=== PATIENT | female | born 1950 | race Hispanic/Latino ===

== ENCOUNTER 2021-01-19 13:09 | Outpatient (CLI) | payer MEDICARE | END 2021-01-19 13:10 | disposition home or self-care (01) | LOC: BICMAMMO 13:09 | PROVIDERS: ATTEND Hospitalist | DX: Z12.31 Encounter for screening mammogram for malignant neoplasm of breast (principal); Z13.820 Encounter for screening for osteoporosis; Z78.0 Asymptomatic menopausal state | CPT/HCPCS: 77063; 77067; 77080 ==

== ENCOUNTER 2021-06-29 10:54 | Inpatient (IN) | payer MEDICARE ==
[2021-06-29 11:37] LABS: #Basophils 0.1 thou/uL (0.0-0.2); #Eosinphils 0.1 thou/uL (0.0-0.7); #Lymphocytes 2.6 thou/uL (1.20-3.40); #Monocytes 0.4 thou/uL (0.11-0.59); #Neutrophils 4.2 thou/uL (1.40-6.50); %Basophils 0.7 % (0.0-1.0); %Eosinophils 1.3 % (0.0-10.0); %Lymphocytes 35.7 % (21.0-51.0); %Monocytes 4.9 % (0.0-10.0); %Neutrophils 57.3 % (42.0-75.0); Hemoglobin 13.7 g/dL (12.0-16.0); Mean Corpuscular Hemoglobin 32.2 pg (27.0-31.0); Mean Platelet Volume 7.6 fL (7.4-10.4); Platelet Count 303 thou/uL (130-400); RBC Distribution Width 10.7 % (11.5-14.5); Red Blood Cell (RBC) Count 4.27 mill/uL (4.20-5.40); White Blood Cell (WBC) Count 7.3 thou/uL (4.8-10.8)
[2021-06-29] MEDS ORDERED: Lorazepam 2 MG/ML VIAL ONE (17:46)
[2021-06-29 20:33] LABS: Anion Gap 12 mmol/L (10-20); BUN (Urea Nitrogen) 13 mg/dL (9.8-20.1); Calc. Creatinine Clearance 0 mL/min (70-130); Carbon Dioxide 26 mmol/L (23-31); Chloride 103 mmol/L (98-107); Potassium 3.7 mmol/L (3.5-5.1); Sodium 137 mmol/L (136-145)
[2021-06-29 20:34] LABS: ALT (SGPT) 26 U/L (8-55); AST (SGOT) 17 U/L (5-34); Albumin 4.4 g/dL (3.4-4.8); Alkaline Phosphatase 92 U/L (40-110); Bilirubin, Total 0.5 mg/dL (0.2-1.2); Calcium 9.7 mg/dL (7.8-10.44); Globulin 2.6 g/dL (2.4-3.5); Glucose 167 mg/dL (83-110)
[2021-06-29] MEDS ORDERED: Ondansetron ODT 4 MG TAB PO PRN (22:32)
[2021-06-29] MEDS ORDERED: Diclofenac 1% 100 GM GEL TP PRN (22:59)
[2021-06-29] MEDS ORDERED: Amitriptyline HCl 100 MG TAB PO SCH (23:15)
[2021-06-29] MEDS ORDERED: Atorvastatin Calcium 20 MG TAB PO SCH (23:30)
[2021-06-30] MEDS ORDERED: Amitriptyline HCl 100 MG TAB PO SCH (09:00)
[2021-06-30 09:29] VITALS: BMI 28.5
[2021-06-30] MEDS: Lisinopril 10 MG TAB PO SCH (09:48)
[2021-06-30] MEDS: Triamterene/Hydrochlorothiazide 37.5 mg/25 mg Tablet PO SCH (09:49)
[2021-06-30] MEDS: Famotidine 20 MG TAB PO SCH (09:55)
[2021-06-30] MEDS: Enoxaparin Sodium 40 MG/0.4 ML SYRINGE SC SCH (09:55)
[2021-06-30 10:57] LABS: SARS-CoV-2 NAA Rapid Test Not Detected (NotDetected)
[2021-06-30] MEDS ORDERED: Lidocaine 1% (PF) 30 ML VIAL ONE (11:25)
[2021-06-30 18:19] LABS: #Basophils 0.1 thou/uL (0.0-0.2); #Eosinphils 0.1 thou/uL (0.0-0.7); #Lymphocytes 2.9 thou/uL (1.20-3.40); #Monocytes 0.7 thou/uL (0.11-0.59); #Neutrophils 5.6 thou/uL (1.40-6.50); %Basophils 0.8 % (0.0-1.0); %Eosinophils 0.6 % (0.0-10.0); %Lymphocytes 31.2 % (21.0-51.0); %Monocytes 7.7 % (0.0-10.0); %Neutrophils 59.7 % (42.0-75.0); Hemoglobin 14.8 g/dL (12.0-16.0); Mean Corpuscular HGB CONC 35.4 g/dL (32.0-36.0); Mean Corpuscular Hemoglobin 32.5 pg (27.0-31.0); Mean Corpuscular Volume 91.9 fL (78.0-98.0); Mean Platelet Volume 7.6 fL (7.4-10.4); Platelet Count 317 thou/uL (130-400); Red Blood Cell (RBC) Count 4.56 mill/uL (4.20-5.40); White Blood Cell (WBC) Count 9.4 thou/uL (4.8-10.8)
[2021-06-30 18:50] LABS: ALT (SGPT) 25 U/L (8-55); AST (SGOT) 15 U/L (5-34); Albumin 4.7 g/dL (3.4-4.8); Alkaline Phosphatase 90 U/L (40-110); Anion Gap 16 mmol/L (10-20); BUN (Urea Nitrogen) 13 mg/dL (9.8-20.1); Bilirubin, Total 0.4 mg/dL (0.2-1.2); CRP (Inflammatory) 0.51 mg/dL (= or < 0.5); Calc. Creatinine Clearance 80 mL/min (70-130); Calcium 10.2 mg/dL (7.8-10.44); Carbon Dioxide 26 mmol/L (23-31); Chloride 103 mmol/L (98-107); Globulin 2.7 g/dL (2.4-3.5); Glucose 123 mg/dL (83-110); Potassium 3.9 mmol/L (3.5-5.1); Protein, Total 7.4 g/dL (5.8-8.1); Sodium 141 mmol/L (136-145)
[2021-06-30 19:03] LABS: Hep C Index 0.07 S/CO (0-0.79)
[2021-06-30 19:04] LABS: Hep C IgG Ab Non-Reactive (NonReactive)
[2021-06-30 19:07] LABS: Syphilis Antibody Nonreactive (Nonreactive); Syphilis Antibody Index 0.03 S/CO (<1.00 Non-Reactive)
[2021-06-30] MEDS: Amitriptyline HCl 100 MG TAB PO SCH (20:38)
[2021-06-30] MEDS: Atorvastatin Calcium 20 MG TAB PO SCH (20:39)
[2021-06-30] MEDS: methylPREDNISolone Sod Succ 1 GM in Sodium Chloride 0.9% 100 ML IVPB SCH (20:39)
[2021-07-01 06:51] LABS: HIV (1/2) Antibody/Antigen Non-Reactive (NonReactive); HIV 1/2 INDEX 0.07 S/CO (<1.00)
[2021-07-01] MEDS: Famotidine 20 MG TAB PO SCH (08:49)
[2021-07-01] MEDS: Enoxaparin Sodium 40 MG/0.4 ML SYRINGE SC SCH (08:49)
[2021-07-01] MEDS: Lisinopril 10 MG TAB PO SCH (08:49)
[2021-07-01] MEDS: Triamterene/Hydrochlorothiazide 37.5 mg/25 mg Tablet PO SCH (09:51)
[2021-07-01] MEDS ORDERED: Lorazepam 2 MG/ML VIAL SLOW IVP SCH (11:01)
[2021-07-01] MEDS ORDERED: Magnevist 469MG/ML 20 ML VIAL ONE ×2 (15:44)
[2021-07-01] MEDS: methylPREDNISolone Sod Succ 1 GM in Sodium Chloride 0.9% 100 ML IVPB SCH (20:55)
[2021-07-01] MEDS: Atorvastatin Calcium 20 MG TAB PO SCH (20:56)
[2021-07-01] MEDS: Amitriptyline HCl 100 MG TAB PO SCH (20:56)
[2021-07-02] MEDS: Polyethylene Glycol 3350 17 GM Packet PO PRN (09:07)
[2021-07-02] MEDS: Lisinopril 10 MG TAB PO SCH (09:08)
[2021-07-02] MEDS: Enoxaparin Sodium 40 MG/0.4 ML SYRINGE SC SCH (09:08)
[2021-07-02] MEDS: Famotidine 20 MG TAB PO SCH (09:08)
[2021-07-02] MEDS: Triamterene/Hydrochlorothiazide 37.5 mg/25 mg Tablet PO SCH (09:20)
[2021-07-02] MEDS ORDERED: methylPREDNISolone Sod Succ 1 GM in Sodium Chloride 0.9% 250 ML 250 ML IVPB SCH (20:00)
[2021-07-02] MEDS: Amitriptyline HCl 100 MG TAB PO SCH (21:30)
[2021-07-02] MEDS: Atorvastatin Calcium 20 MG TAB PO SCH (21:31)
[2021-07-03] MEDS ORDERED: Lisinopril 10 MG TAB PO SCH (08:24)
[2021-07-03] MEDS: Famotidine 20 MG TAB PO SCH (08:58)
[2021-07-03] MEDS: Enoxaparin Sodium 40 MG/0.4 ML SYRINGE SC SCH (08:58)
[2021-07-03] MEDS: Triamterene/Hydrochlorothiazide 37.5 mg/25 mg Tablet PO SCH (08:58)
[2021-07-03] MEDS: Lisinopril 20 MG TAB PO SCH (08:58)
[2021-07-03 09:33] LABS: #Lymphocytes 1.2 thou/uL (1.20-3.40); #Monocytes 0.1 thou/uL (0.11-0.59); #Neutrophils 11.9 thou/uL (1.40-6.50); %Eosinophils 0.3 % (0.0-10.0); %Lymphocytes 8.8 % (21.0-51.0); %Monocytes 0.6 % (0.0-10.0); %Neutrophils 90.3 % (42.0-75.0); Hemoglobin 14.2 g/dL (12.0-16.0); Mean Corpuscular HGB CONC 34.3 g/dL (32.0-36.0); Mean Corpuscular Hemoglobin 31.8 pg (27.0-31.0); Mean Corpuscular Volume 92.7 fL (78.0-98.0); Platelet Count 345 thou/uL (130-400); RBC Distribution Width 11.2 % (11.5-14.5); Red Blood Cell (RBC) Count 4.45 mill/uL (4.20-5.40); White Blood Cell (WBC) Count 13.2 thou/uL (4.8-10.8)
[2021-07-03 09:51] LABS: ALT (SGPT) 34 U/L (8-55); AST (SGOT) 16 U/L (5-34); Albumin 4.4 g/dL (3.4-4.8); Alkaline Phosphatase 75 U/L (40-110); Anion Gap 17 mmol/L (10-20); BUN (Urea Nitrogen) 34 mg/dL (9.8-20.1); Bilirubin, Total 0.5 mg/dL (0.2-1.2); Calc. Creatinine Clearance 72 mL/min (70-130); Calcium 10.1 mg/dL (7.8-10.44); Carbon Dioxide 21 mmol/L (23-31); Chloride 107 mmol/L (98-107); Globulin 2.7 g/dL (2.4-3.5); Glucose 161 mg/dL (83-110); Potassium 4.2 mmol/L (3.5-5.1); Protein, Total 7.1 g/dL (5.8-8.1); Sodium 141 mmol/L (136-145)
[2021-07-03 13:12] LABS: Lyme IgG/IgM AB <0.91 ISR (0.00-0.90)
[2021-07-03] MEDS: Acetaminophen 325 MG TAB PO PRN (19:34)
[2021-07-03] MEDS: Amitriptyline HCl 100 MG TAB PO SCH (20:29)
[2021-07-03] MEDS: Atorvastatin Calcium 20 MG TAB PO SCH (20:29)
[2021-07-04] MEDS: Polyethylene Glycol 3350 17 GM Packet PO PRN (08:45)
[2021-07-04] MEDS: Triamterene/Hydrochlorothiazide 37.5 mg/25 mg Tablet PO SCH (08:47)
[2021-07-04] MEDS: Famotidine 20 MG TAB PO SCH (08:47)
[2021-07-04] MEDS: Lisinopril 20 MG TAB PO SCH (08:47)
[2021-07-04] MEDS: Enoxaparin Sodium 40 MG/0.4 ML SYRINGE SC SCH (08:48)
[2021-07-04] MEDS: Acetaminophen 325 MG TAB PO PRN (14:02)
[2021-07-04] MEDS: Amitriptyline HCl 100 MG TAB PO SCH (21:19)
[2021-07-04] MEDS: Atorvastatin Calcium 20 MG TAB PO SCH (21:19)
[2021-07-05] MEDS: Famotidine 20 MG TAB PO SCH (09:13)
[2021-07-05] MEDS: Lisinopril 20 MG TAB PO SCH (09:14)
[2021-07-05] MEDS: Enoxaparin Sodium 40 MG/0.4 ML SYRINGE SC SCH (09:14)
[2021-07-05] MEDS: Triamterene/Hydrochlorothiazide 37.5 mg/25 mg Tablet PO SCH (10:10)
[2021-07-05 11:54] LABS: #Basophils 0.1 thou/uL (0.0-0.2); #Eosinphils 0.3 thou/uL (0.0-0.7); #Lymphocytes 3.1 thou/uL (1.20-3.40); #Monocytes 1.1 thou/uL (0.11-0.59); %Eosinophils 2.3 % (0.0-10.0); %Lymphocytes 22.8 % (21.0-51.0); %Neutrophils 65.9 % (42.0-75.0); Hemoglobin 15.8 g/dL (12.0-16.0); Mean Corpuscular HGB CONC 32.9 g/dL (32.0-36.0); Mean Corpuscular Hemoglobin 30.8 pg (27.0-31.0); Mean Corpuscular Volume 93.8 fL (78.0-98.0); Mean Platelet Volume 7.7 fL (7.4-10.4); Platelet Count 340 thou/uL (130-400); RBC Distribution Width 11.3 % (11.5-14.5); Red Blood Cell (RBC) Count 5.12 mill/uL (4.20-5.40); White Blood Cell (WBC) Count 13.7 thou/uL (4.8-10.8)
[2021-07-05 12:22] LABS: ALT (SGPT) 98 U/L (8-55); AST (SGOT) 23 U/L (5-34); Albumin 4.4 g/dL (3.4-4.8); Alkaline Phosphatase 96 U/L (40-110); Anion Gap 13 mmol/L (10-20); BUN (Urea Nitrogen) 30 mg/dL (9.8-20.1); Bilirubin, Total 0.7 mg/dL (0.2-1.2); Calc. Creatinine Clearance 80 mL/min (70-130); Calcium 9.9 mg/dL (7.8-10.44); Carbon Dioxide 24 mmol/L (23-31); Chloride 107 mmol/L (98-107); Globulin 2.9 g/dL (2.4-3.5); Glucose 125 mg/dL (83-110); Potassium 4.2 mmol/L (3.5-5.1); Protein, Total 7.3 g/dL (5.8-8.1); Sodium 140 mmol/L (136-145)
[2021-07-05 15:48] VITALS: BP 120/73; TEMP 97.7
== END 2021-07-05 18:15 | DRG 99 ==
LOC: ERS 10:54 → 3SE 22:32 → OBSVTOIN 07-01 11:27
PROVIDERS: ADMIT Family Medicine; ATTEND Family Medicine
DX: G37.3 Acute transverse myelitis in demyelinating disease of central nervous system (principal); Z66 Do not resuscitate; Z20.822 Contact with and (suspected) exposure to COVID-19; I10 Essential (primary) hypertension; E78.5 Hyperlipidemia, unspecified; M19.90 Unspecified osteoarthritis, unspecified site; J45.909 Unspecified asthma, uncomplicated; R29.6 Repeated falls; F32.9 Major depressive disorder, single episode, unspecified; M85.80 Other specified disorders of bone density and structure, unspecified site; Z79.899 Other long term (current) drug therapy; Z98.890 Other specified postprocedural states
CPT/HCPCS: 36415; 70450; 72157; 72158; 80053; 82607; 84207; 84425; 85025; 85652; 86140; 86618; 86780; 86803; 87389; 93005; 96365; 96372; A9579; G0378; J1650; J2060; J2930; J3490; J7050; U0002

== ENCOUNTER 2022-01-23 11:20 | Outpatient (CLI) | payer MEDICARE | END 2022-01-23 11:21 | disposition home or self-care (01) | LOC: RAD 11:20 | PROVIDERS: ATTEND Physician Assistant | DX: M47.22 Other spondylosis with radiculopathy, cervical region (principal); Z98.1 Arthrodesis status | CPT/HCPCS: 72040 ==

== ENCOUNTER 2022-02-26 18:27 | Inpatient (IN) | payer MEDICARE, OTHER ==
[~2022-02-26 18:27] MED LIST: Iopamidol-370 76% 500 ML 1 ML ONE
[2022-02-26 18:58] LABS: #Basophils 0.1 thou/uL (0.0-0.2); #Eosinphils 0.1 thou/uL (0.0-0.7); #Lymphocytes 2.7 thou/uL (1.20-3.40); #Monocytes 0.9 thou/uL (0.11-0.59); #Neutrophils 8.5 thou/uL (1.40-6.50); %Basophils 0.4 % (0.0-1.0); %Eosinophils 1.1 % (0.0-10.0); %Lymphocytes 21.9 % (21.0-51.0); %Monocytes 7.3 % (0.0-10.0); %Neutrophils 69.3 % (42.0-75.0); Mean Corpuscular HGB CONC 31.3 g/dL (32.0-36.0); Mean Corpuscular Volume 92.5 fL (78.0-98.0); Mean Platelet Volume 5.8 fL (7.4-10.4); Platelet Count 840 thou/uL (130-400); RBC Distribution Width 13.8 % (11.5-14.5); Red Blood Cell (RBC) Count 3.09 mill/uL (4.20-5.40); White Blood Cell (WBC) Count 12.3 thou/uL (4.8-10.8)
[2022-02-26 19:18] LABS: ALT (SGPT) 145 U/L (8-55); AST (SGOT) 73 U/L (5-34); Albumin 2.9 g/dL (3.4-4.8); Alkaline Phosphatase 183 U/L (40-110); Anion Gap 15 mmol/L (10-20); BUN (Urea Nitrogen) 10 mg/dL (9.8-20.1); Bilirubin, Total 0.5 mg/dL (0.2-1.2); Calc. Creatinine Clearance 0 mL/min (70-130); Calcium 8.7 mg/dL (7.8-10.44); Carbon Dioxide 24 mmol/L (23-31); Chloride 105 mmol/L (98-107); Globulin 3.7 g/dL (2.4-3.5); Glucose 128 mg/dL (83-110); Magnesium 1.6 mg/dL (1.6-2.6); Potassium 3.7 mmol/L (3.5-5.1); Protein, Total 6.6 g/dL (5.8-8.1); Sodium 140 mmol/L (136-145)
[2022-02-26 20:11] LABS: Bilirubin Negative (Negative); Blood, Urine 1+ (Negative); Calcium Oxalate Crystals Rare HPF (None Seen); Clarity Clear (Clear); Glucose, Urine (Dipstick) Normal (Negative); Ketone, Urine Negative (Negative); Leukocyte 500 Leu/uL (Negative); Nitrite Negative (Negative); Protein, Urine (Dipstick) Negative (Neg-Trace); RBC/HPF 0-3 HPF (0-3); Squamous Epithelial None Seen HPF (0-3); Urobilinogen Normal mg/dL (Less than 2)
[2022-02-26 20:12] LABS: Bacteria/HPF 1+ HPF (None Seen); Specific Gravity, Urine 1.046 (1.002-1.036)
[2022-02-26] MEDS ORDERED: Piperacillin/Tazobactam 4.5 GM VIAL ONE (20:27)
[2022-02-26] MEDS ORDERED: Vancomycin 1 GM/200 ML BAG ONE (21:02)
[2022-02-26] MEDS ORDERED: Ondansetron ODT 4 MG TAB PO PRN (21:33)
[2022-02-26 22:14] VITALS: BMI 27.8
[2022-02-26] MEDS ORDERED: Famotidine 20 MG TAB PO PRN (22:14)
[2022-02-26] MEDS ORDERED: Albuterol Sulfate 2.5 mg/3 ml Neb NEB PRN (22:19)
[2022-02-26] MEDS ORDERED: Vancomycin HCl 500 MG in Sodium Chloride 0.9% 100 ML IVPB SCH (23:00)
[2022-02-27] MEDS ORDERED: Ketorolac Tromethamine 30 MG/ML VIAL IVP SCH
[2022-02-27 00:58] LABS: SARS-CoV-2 PCR by NAA Not Detected (NotDetected)
[2022-02-27] MEDS: Piperacillin/Tazobactam 3.375 GM in Sodium Chloride 0.9% 100 ML IVPB SCH ×4 (01:16→23:55)
[2022-02-27 07:18] LABS: #Basophils 0.1 thou/uL (0.0-0.2); #Eosinphils 0.2 thou/uL (0.0-0.7); #Lymphocytes 2.1 thou/uL (1.20-3.40); #Monocytes 0.6 thou/uL (0.11-0.59); #Neutrophils 5.1 thou/uL (1.40-6.50); %Basophils 0.9 % (0.0-1.0); %Eosinophils 2.7 % (0.0-10.0); %Lymphocytes 25.8 % (21.0-51.0); %Monocytes 7.4 % (0.0-10.0); %Neutrophils 63.2 % (42.0-75.0); Hemoglobin 7.6 g/dL (12.0-16.0); Mean Corpuscular HGB CONC 31.3 g/dL (32.0-36.0); Mean Corpuscular Hemoglobin 29.5 pg (27.0-31.0); Mean Corpuscular Volume 94.2 fL (78.0-98.0); Mean Platelet Volume 5.8 fL (7.4-10.4); Platelet Count 692 thou/uL (130-400); RBC Distribution Width 13.5 % (11.5-14.5); Red Blood Cell (RBC) Count 2.57 mill/uL (4.20-5.40)
[2022-02-27] MEDS: Mometasone 200 MCG/Formoterol 5 MCG 120 PUFF INHALER INH SCH ×2 (07:21→19:02)
[2022-02-27 07:27] LABS: ALT (SGPT) 103 U/L (8-55); AST (SGOT) 41 U/L (5-34); Albumin 2.4 g/dL (3.4-4.8); Alkaline Phosphatase 139 U/L (40-110); Anion Gap 11 mmol/L (10-20); BUN (Urea Nitrogen) 9 mg/dL (9.8-20.1); Bilirubin, Total 0.6 mg/dL (0.2-1.2); Calc. Creatinine Clearance 102 mL/min (70-130); Calcium 8.2 mg/dL (7.8-10.44); Carbon Dioxide 24 mmol/L (23-31); Chloride 105 mmol/L (98-107); Globulin 3.1 g/dL (2.4-3.5); Glucose 101 mg/dL (83-110); Potassium 3.2 mmol/L (3.5-5.1); Protein, Total 5.5 g/dL (5.8-8.1); Sodium 137 mmol/L (136-145)
[2022-02-27 07:32] LABS: MDiff Complete? YES; Platelet Morphology Comment Appears Increased; Polychromasia SLIGHT = 2-3 cells (100X) (0-2/hpf)
[2022-02-27] MEDS: Gabapentin 300 MG CAP PO SCH ×3 (08:50→21:46)
[2022-02-27] MEDS: Apixaban 5 MG TAB PO SCH (08:50)
[2022-02-27] MEDS: Baclofen 10 MG TAB PO SCH ×3 (08:50→21:45)
[2022-02-27] MEDS: Acetaminophen 325 MG TAB PO PRN (08:57)
[2022-02-27] MEDS ORDERED: Potassium Chloride 20 MEQ TAB PO SCH (09:00)
[2022-02-27] MEDS: traMADol HCl 50 MG TAB PO PRN (12:04)
[2022-02-27] MEDS: Atorvastatin Calcium 20 MG TAB PO SCH (21:45)
[2022-02-27] MEDS: Vancomycin 1.5 GRAM/300 ML BAG 1.5 GM in Premix Bag 1 BAG IVPB SCH (21:46)
[2022-02-27] MEDS ORDERED: Amitriptyline HCl 25 MG TAB PO SCH (22:30)
[2022-02-28 06:10] LABS: #Eosinphils 0.2 thou/uL (0.0-0.7); #Monocytes 0.7 thou/uL (0.11-0.59); #Neutrophils 6.2 thou/uL (1.40-6.50); %Basophils 0.4 % (0.0-1.0); %Eosinophils 2.2 % (0.0-10.0); %Lymphocytes 22.3 % (21.0-51.0); %Monocytes 7.2 % (0.0-10.0); Mean Corpuscular HGB CONC 30.7 g/dL (32.0-36.0); Mean Corpuscular Hemoglobin 29.1 pg (27.0-31.0); Mean Corpuscular Volume 94.7 fL (78.0-98.0); Mean Platelet Volume 5.9 fL (7.4-10.4); Platelet Count 754 thou/uL (130-400); RBC Distribution Width 13.7 % (11.5-14.5); Red Blood Cell (RBC) Count 2.74 mill/uL (4.20-5.40); White Blood Cell (WBC) Count 9.1 thou/uL (4.8-10.8)
[2022-02-28 06:24] LABS: ALT (SGPT) 97 U/L (8-55); AST (SGOT) 44 U/L (5-34); Albumin 2.6 g/dL (3.4-4.8); Alkaline Phosphatase 143 U/L (40-110); Anion Gap 14 mmol/L (10-20); BUN (Urea Nitrogen) 5 mg/dL (9.8-20.1); Bilirubin, Total 0.3 mg/dL (0.2-1.2); Calc. Creatinine Clearance 104 mL/min (70-130); Calcium 8.4 mg/dL (7.8-10.44); Carbon Dioxide 22 mmol/L (23-31); Chloride 109 mmol/L (98-107); Globulin 3.2 g/dL (2.4-3.5); Glucose 106 mg/dL (83-110); Potassium 3.7 mmol/L (3.5-5.1); Protein, Total 5.8 g/dL (5.8-8.1); Sodium 141 mmol/L (136-145)
[2022-02-28] MEDS: Mometasone 200 MCG/Formoterol 5 MCG 120 PUFF INHALER INH SCH ×2 (07:18→19:39)
[2022-02-28] MEDS: Gabapentin 300 MG CAP PO SCH ×3 (08:30→21:21)
[2022-02-28] MEDS: Baclofen 10 MG TAB PO SCH ×3 (08:30→21:21)
[2022-02-28] MEDS: Piperacillin/Tazobactam 3.375 GM in Sodium Chloride 0.9% 100 ML IVPB SCH ×2 (08:30→15:27)
[2022-02-28 20:40] LABS: Vancomycin, Trough 3.6 ug/mL
[2022-02-28] MEDS: Vancomycin 1.5 GRAM/300 ML BAG 1.5 GM in Premix Bag 1 BAG IVPB SCH (21:20)
[2022-02-28] MEDS: Atorvastatin Calcium 20 MG TAB PO SCH (21:21)
[2022-02-28] MEDS: Amitriptyline HCl 100 MG TAB PO SCH (21:22)
[2022-03-01] MEDS: Piperacillin/Tazobactam 3.375 GM in Sodium Chloride 0.9% 100 ML IVPB SCH ×3 (00:12→15:45)
[2022-03-01 06:36] LABS: #Eosinphils 0.2 thou/uL (0.0-0.7); #Lymphocytes 2.1 thou/uL (1.20-3.40); #Monocytes 0.5 thou/uL (0.11-0.59); #Neutrophils 5.9 thou/uL (1.40-6.50); %Basophils 0.4 % (0.0-1.0); %Eosinophils 2.8 % (0.0-10.0); %Lymphocytes 23.6 % (21.0-51.0); %Monocytes 6.1 % (0.0-10.0); %Neutrophils 67.2 % (42.0-75.0); Mean Corpuscular HGB CONC 31.3 g/dL (32.0-36.0); Mean Corpuscular Hemoglobin 29.6 pg (27.0-31.0); Mean Corpuscular Volume 94.4 fL (78.0-98.0); Platelet Count 811 thou/uL (130-400); Red Blood Cell (RBC) Count 3.05 mill/uL (4.20-5.40); White Blood Cell (WBC) Count 8.9 thou/uL (4.8-10.8)
[2022-03-01 07:10] LABS: ALT (SGPT) 95 U/L (8-55); AST (SGOT) 40 U/L (5-34); Albumin 2.8 g/dL (3.4-4.8); Alkaline Phosphatase 146 U/L (40-110); Anion Gap 12 mmol/L (10-20); BUN (Urea Nitrogen) 5 mg/dL (9.8-20.1); Bilirubin, Total 0.3 mg/dL (0.2-1.2); Calc. Creatinine Clearance 106 mL/min (70-130); Calcium 8.9 mg/dL (7.8-10.44); Carbon Dioxide 25 mmol/L (23-31); Chloride 110 mmol/L (98-107); Globulin 3.6 g/dL (2.4-3.5); Glucose 112 mg/dL (83-110); Potassium 3.1 mmol/L (3.5-5.1); Protein, Total 6.4 g/dL (5.8-8.1); Sodium 144 mmol/L (136-145)
[2022-03-01] MEDS: Mometasone 200 MCG/Formoterol 5 MCG 120 PUFF INHALER INH SCH ×2 (07:11→18:41)
[2022-03-01] MEDS ORDERED: Potassium Chloride 20 MEQ TAB PO SCH (07:30)
[2022-03-01] MEDS ORDERED: Vancomycin 1 GM in Premix Bag 1 BAG IVPB SCH (09:00)
[2022-03-01] MEDS: Baclofen 10 MG TAB PO SCH ×3 (09:12→20:33)
[2022-03-01] MEDS: Gabapentin 300 MG CAP PO SCH ×3 (09:12→20:33)
[2022-03-01] MEDS ORDERED: PROPOFOL 200 MG/20 ML VIAL ONE (12:27)
[2022-03-01] MEDS ORDERED: PHENYLEPHRINE-NS 100 MCG/ML 10 ML SYRINGE ONE (12:27)
[2022-03-01] MEDS ORDERED: Ondansetron PF 4 MG/2 ML Vial ONE (12:27)
[2022-03-01] MEDS ORDERED: Rocuronium Bromide 10 MG/ML (10ML VIAL) ONE (12:27)
[2022-03-01] MEDS ORDERED: fentaNYL Citrate/PF 100 MCG/2 ML SYRINGE ONE (12:33)
[2022-03-01] MEDS ORDERED: SUGAMMADEX SODIUM 200 MG/2 ML VIAL ONE (13:12)
[2022-03-01] MEDS ORDERED: Fentanyl 100 MCG/2 ML VIAL ONE (13:57)
[2022-03-01] MEDS: Acetaminophen 325 MG TAB PO PRN (15:44)
[2022-03-01] MEDS: Amitriptyline HCl 100 MG TAB PO SCH (20:33)
[2022-03-01] MEDS: Atorvastatin Calcium 20 MG TAB PO SCH (20:37)
[2022-03-01] MEDS: traMADol HCl 50 MG TAB PO PRN (20:50)
[2022-03-02] MEDS: Piperacillin/Tazobactam 3.375 GM in Sodium Chloride 0.9% 100 ML IVPB SCH ×2 (00:02→08:55)
[2022-03-02 06:37] LABS: #Eosinphils 0.3 thou/uL (0.0-0.7); #Lymphocytes 2.2 thou/uL (1.20-3.40); #Monocytes 0.7 thou/uL (0.11-0.59); #Neutrophils 5.7 thou/uL (1.40-6.50); %Basophils 0.4 % (0.0-1.0); %Eosinophils 3.1 % (0.0-10.0); %Lymphocytes 24.6 % (21.0-51.0); %Monocytes 7.7 % (0.0-10.0); %Neutrophils 64.2 % (42.0-75.0); Hemoglobin 8.5 g/dL (12.0-16.0); Mean Corpuscular HGB CONC 30.8 g/dL (32.0-36.0); Mean Corpuscular Hemoglobin 29.4 pg (27.0-31.0); Mean Corpuscular Volume 95.3 fL (78.0-98.0); Mean Platelet Volume 5.7 fL (7.4-10.4); Platelet Count 738 thou/uL (130-400); Red Blood Cell (RBC) Count 2.88 mill/uL (4.20-5.40); White Blood Cell (WBC) Count 8.9 thou/uL (4.8-10.8)
[2022-03-02 06:59] LABS: ALT (SGPT) 86 U/L (8-55); AST (SGOT) 45 U/L (5-34); Albumin 2.7 g/dL (3.4-4.8); Alkaline Phosphatase 131 U/L (40-110); Anion Gap 11 mmol/L (10-20); BUN (Urea Nitrogen) 9 mg/dL (9.8-20.1); Bilirubin, Total 0.3 mg/dL (0.2-1.2); Calc. Creatinine Clearance 95 mL/min (70-130); Calcium 8.9 mg/dL (7.8-10.44); Carbon Dioxide 26 mmol/L (23-31); Chloride 109 mmol/L (98-107); Globulin 3.1 g/dL (2.4-3.5); Glucose 104 mg/dL (83-110); Potassium 4.3 mmol/L (3.5-5.1); Protein, Total 5.8 g/dL (5.8-8.1); Sodium 142 mmol/L (136-145)
[2022-03-02] MEDS: Mometasone 200 MCG/Formoterol 5 MCG 120 PUFF INHALER INH SCH ×2 (07:46→19:21)
[2022-03-02] MEDS: Gabapentin 300 MG CAP PO SCH ×3 (08:55→20:21)
[2022-03-02] MEDS: Baclofen 10 MG TAB PO SCH ×3 (08:55→20:20)
[2022-03-02] MEDS: cefTRIAXone\\ROCEPHIN 2 GM in Sodium Chloride 0.9% 100 ML IVPB SCH (15:00)
[2022-03-02] MEDS: Acetaminophen 325 MG TAB PO PRN ×2 (15:00→20:21)
[2022-03-02] MEDS: Amitriptyline HCl 100 MG TAB PO SCH (20:20)
[2022-03-02] MEDS: Atorvastatin Calcium 20 MG TAB PO SCH (20:20)
[2022-03-02] MEDS: traMADol HCl 50 MG TAB PO PRN (20:22)
[2022-03-03 06:45] LABS: #Basophils 0.1 thou/uL (0.0-0.2); #Eosinphils 0.3 thou/uL (0.0-0.7); #Monocytes 0.5 thou/uL (0.11-0.59); %Basophils 0.9 % (0.0-1.0); %Eosinophils 3.3 % (0.0-10.0); %Lymphocytes 22.6 % (21.0-51.0); %Monocytes 5.4 % (0.0-10.0); %Neutrophils 67.8 % (42.0-75.0); Hemoglobin 8.4 g/dL (12.0-16.0); Mean Corpuscular HGB CONC 30.5 g/dL (32.0-36.0); Mean Corpuscular Hemoglobin 29.2 pg (27.0-31.0); Mean Corpuscular Volume 95.8 fL (78.0-98.0); Mean Platelet Volume 5.7 fL (7.4-10.4); Platelet Count 750 thou/uL (130-400); RBC Distribution Width 14.3 % (11.5-14.5); Red Blood Cell (RBC) Count 2.88 mill/uL (4.20-5.40); White Blood Cell (WBC) Count 8.8 thou/uL (4.8-10.8)
[2022-03-03 07:14] LABS: ALT (SGPT) 78 U/L (8-55); AST (SGOT) 41 U/L (5-34); Albumin 2.7 g/dL (3.4-4.8); Alkaline Phosphatase 132 U/L (40-110); Anion Gap 12 mmol/L (10-20); BUN (Urea Nitrogen) 8 mg/dL (9.8-20.1); Bilirubin, Total 0.2 mg/dL (0.2-1.2); Calc. Creatinine Clearance 106 mL/min (70-130); Calcium 8.8 mg/dL (7.8-10.44); Carbon Dioxide 25 mmol/L (23-31); Chloride 110 mmol/L (98-107); Globulin 3.3 g/dL (2.4-3.5); Glucose 115 mg/dL (83-110); Potassium 3.6 mmol/L (3.5-5.1); Sodium 143 mmol/L (136-145)
[2022-03-03] MEDS: Mometasone 200 MCG/Formoterol 5 MCG 120 PUFF INHALER INH SCH ×2 (07:34→18:46)
[2022-03-03] MEDS: Gabapentin 300 MG CAP PO SCH ×3 (08:24→20:27)
[2022-03-03] MEDS: traMADol HCl 50 MG TAB PO PRN ×2 (08:24→14:50)
[2022-03-03] MEDS: Apixaban 5 MG TAB PO SCH ×2 (08:24→20:27)
[2022-03-03] MEDS: Baclofen 10 MG TAB PO SCH ×3 (08:24→20:27)
[2022-03-03] MEDS: cefTRIAXone\\ROCEPHIN 2 GM in Sodium Chloride 0.9% 100 ML IVPB SCH (14:51)
[2022-03-03] MEDS: Atorvastatin Calcium 20 MG TAB PO SCH (20:27)
[2022-03-03] MEDS: Amitriptyline HCl 100 MG TAB PO SCH (20:27)
[2022-03-04 06:11] LABS: #Eosinphils 0.2 thou/uL (0.0-0.7); #Lymphocytes 1.9 thou/uL (1.20-3.40); #Monocytes 0.5 thou/uL (0.11-0.59); #Neutrophils 6.4 thou/uL (1.40-6.50); %Basophils 0.5 % (0.0-1.0); %Eosinophils 2.7 % (0.0-10.0); %Lymphocytes 21.1 % (21.0-51.0); %Monocytes 5.4 % (0.0-10.0); %Neutrophils 70.4 % (42.0-75.0); Hemoglobin 8.9 g/dL (12.0-16.0); Mean Corpuscular HGB CONC 30.6 g/dL (32.0-36.0); Mean Corpuscular Hemoglobin 29.1 pg (27.0-31.0); Mean Corpuscular Volume 94.8 fL (78.0-98.0); Mean Platelet Volume 5.7 fL (7.4-10.4); Platelet Count 839 thou/uL (130-400); RBC Distribution Width 14.5 % (11.5-14.5); Red Blood Cell (RBC) Count 3.05 mill/uL (4.20-5.40)
[2022-03-04 06:34] LABS: ALT (SGPT) 77 U/L (8-55); AST (SGOT) 38 U/L (5-34); Albumin 2.9 g/dL (3.4-4.8); Alkaline Phosphatase 128 U/L (40-110); Anion Gap 13 mmol/L (10-20); BUN (Urea Nitrogen) 7 mg/dL (9.8-20.1); Bilirubin, Total 0.2 mg/dL (0.2-1.2); Calc. Creatinine Clearance 102 mL/min (70-130); Calcium 9.3 mg/dL (7.8-10.44); Carbon Dioxide 26 mmol/L (23-31); Chloride 105 mmol/L (98-107); Globulin 3.4 g/dL (2.4-3.5); Glucose 115 mg/dL (83-110); Potassium 3.8 mmol/L (3.5-5.1); Protein, Total 6.3 g/dL (5.8-8.1); Sodium 140 mmol/L (136-145)
[2022-03-04] MEDS: Mometasone 200 MCG/Formoterol 5 MCG 120 PUFF INHALER INH SCH ×2 (06:50→19:51)
[2022-03-04] MEDS: Apixaban 5 MG TAB PO SCH ×2 (08:16→21:14)
[2022-03-04] MEDS: Gabapentin 300 MG CAP PO SCH ×3 (08:18→21:13)
[2022-03-04] MEDS: Baclofen 10 MG TAB PO SCH ×3 (08:18→21:14)
[2022-03-04] MEDS: traMADol HCl 50 MG TAB PO PRN (10:42)
[2022-03-04] MEDS ORDERED: metroNIDAZOLE 500 MG TAB PO SCH (11:15)
[2022-03-04] MEDS: cefTRIAXone\\ROCEPHIN 2 GM in Sodium Chloride 0.9% 100 ML IVPB SCH (14:37)
[2022-03-04] MEDS: metroNIDAZOLE 500 MG TAB PO SCH (21:13)
[2022-03-04] MEDS: Atorvastatin Calcium 20 MG TAB PO SCH (21:14)
[2022-03-04] MEDS: Amitriptyline HCl 100 MG TAB PO SCH (21:18)
[2022-03-05] MEDS: traMADol HCl 50 MG TAB PO PRN (05:40)
[2022-03-05 06:04] LABS: #Basophils 0.1 thou/uL (0.0-0.2); #Eosinphils 0.3 thou/uL (0.0-0.7); #Lymphocytes 2.5 thou/uL (1.20-3.40); #Monocytes 0.6 thou/uL (0.11-0.59); #Neutrophils 6.5 thou/uL (1.40-6.50); %Basophils 0.6 % (0.0-1.0); %Eosinophils 2.6 % (0.0-10.0); %Lymphocytes 25.1 % (21.0-51.0); %Monocytes 6.1 % (0.0-10.0); %Neutrophils 65.6 % (42.0-75.0); Hemoglobin 8.9 g/dL (12.0-16.0); Mean Corpuscular HGB CONC 32.2 g/dL (32.0-36.0); Mean Corpuscular Hemoglobin 30.4 pg (27.0-31.0); Mean Corpuscular Volume 94.4 fL (78.0-98.0); Mean Platelet Volume 5.8 fL (7.4-10.4); Platelet Count 763 thou/uL (130-400); RBC Distribution Width 14.8 % (11.5-14.5); Red Blood Cell (RBC) Count 2.93 mill/uL (4.20-5.40)
[2022-03-05] MEDS: Mometasone 200 MCG/Formoterol 5 MCG 120 PUFF INHALER INH SCH ×2 (07:50→19:11)
[2022-03-05] MEDS: Baclofen 10 MG TAB PO SCH ×3 (08:34→20:21)
[2022-03-05] MEDS: Gabapentin 300 MG CAP PO SCH ×3 (08:34→20:21)
[2022-03-05] MEDS: Apixaban 5 MG TAB PO SCH ×2 (08:34→20:21)
[2022-03-05] MEDS: metroNIDAZOLE 500 MG TAB PO SCH ×2 (08:34→20:21)
[2022-03-05 12:07] LABS: SARS-CoV-2 PCR by NAA Not Detected (NotDetected)
[2022-03-05] MEDS: cefTRIAXone\\ROCEPHIN 2 GM in Sodium Chloride 0.9% 100 ML IVPB SCH (14:14)
[2022-03-05] MEDS: Amitriptyline HCl 100 MG TAB PO SCH (20:21)
[2022-03-05] MEDS: Atorvastatin Calcium 20 MG TAB PO SCH (20:21)
[2022-03-05] MEDS: Acetaminophen 325 MG TAB PO PRN (20:22)
[2022-03-06 06:31] LABS: #Eosinphils 0.2 thou/uL (0.0-0.7); #Lymphocytes 2.3 thou/uL (1.20-3.40); #Monocytes 0.7 thou/uL (0.11-0.59); #Neutrophils 6.4 thou/uL (1.40-6.50); %Basophils 0.4 % (0.0-1.0); %Eosinophils 2.6 % (0.0-10.0); %Lymphocytes 23.4 % (21.0-51.0); %Monocytes 7.3 % (0.0-10.0); %Neutrophils 66.3 % (42.0-75.0); Hemoglobin 8.8 g/dL (12.0-16.0); Mean Corpuscular HGB CONC 31.3 g/dL (32.0-36.0); Mean Corpuscular Hemoglobin 29.6 pg (27.0-31.0); Mean Corpuscular Volume 94.5 fL (78.0-98.0); Platelet Count 733 thou/uL (130-400); RBC Distribution Width 14.9 % (11.5-14.5); Red Blood Cell (RBC) Count 2.97 mill/uL (4.20-5.40); White Blood Cell (WBC) Count 9.6 thou/uL (4.8-10.8)
[2022-03-06] MEDS: Mometasone 200 MCG/Formoterol 5 MCG 120 PUFF INHALER INH SCH (07:30)
[2022-03-06 08:08] VITALS: BP 106/65; TEMP 98.4
[2022-03-06] MEDS: Apixaban 5 MG TAB PO SCH (08:36)
[2022-03-06] MEDS: Baclofen 10 MG TAB PO SCH ×2 (08:36→14:08)
[2022-03-06] MEDS: metroNIDAZOLE 500 MG TAB PO SCH (08:36)
[2022-03-06] MEDS: Gabapentin 300 MG CAP PO SCH ×2 (08:36→14:07)
[2022-03-06] MEDS ORDERED: Polyethylene Glycol 3350 17 GM Packet PO SCH (09:00)
[2022-03-06] MEDS: traMADol HCl 50 MG TAB PO PRN (12:47)
[2022-03-06] MEDS: cefTRIAXone\\ROCEPHIN 2 GM in Sodium Chloride 0.9% 100 ML IVPB SCH (14:07)
== END 2022-03-06 15:52 | DRG 853 ==
LOC: ERS 18:27 → T4-B 20:39
PROVIDERS: ADMIT Family Medicine; ATTEND Family Medicine
PROC: 3E03329 Introduction of Other Anti-infective into Peripheral Vein, Percutaneous Approach (ICD-10-PCS; 2022-02-26)
PROC: 0QB10ZZ Excision of Sacrum, Open Approach (ICD-10-PCS; principal; 2022-03-01)
PROC: 02HV33Z Insertion of Infusion Device into Superior Vena Cava, Percutaneous Approach (ICD-10-PCS; 2022-03-04)
PROC: B548ZZA Ultrasonography of Superior Vena Cava, Guidance (ICD-10-PCS; 2022-03-04)
DX: A41.51 Sepsis due to Escherichia coli [E. coli] (principal); L89.154 Pressure ulcer of sacral region, stage 4; G82.52 Quadriplegia, C1-C4 incomplete; M46.28 Osteomyelitis of vertebra, sacral and sacrococcygeal region; N39.0 Urinary tract infection, site not specified; Z20.822 Contact with and (suspected) exposure to COVID-19; E78.5 Hyperlipidemia, unspecified; E78.00 Pure hypercholesterolemia, unspecified; I10 Essential (primary) hypertension; J45.909 Unspecified asthma, uncomplicated; K21.9 Gastro-esophageal reflux disease without esophagitis; G47.33 Obstructive sleep apnea (adult) (pediatric); D69.6 Thrombocytopenia, unspecified; Z79.51 Long term (current) use of inhaled steroids; Z79.899 Other long term (current) drug therapy; Z86.711 Personal history of pulmonary embolism
CPT/HCPCS: 36415; 36569; 71045; 74177; 80053; 80202; 81003; 81015; 83605; 83735; 83880; 84145; 84484; 85025; 85652; 86140; 87040; 87070; 87077; 87086; 87186; 87205; 93005; 96365; 96375; C1751; J0696; J1885; J2405; J2543; J2704; J3010; J3370; J3490; Q9967; U0003; U0005

== ENCOUNTER 2022-10-22 09:03 | Outpatient (CLI) | payer MEDICARE | END 2022-10-22 09:04 | disposition home or self-care (01) | LOC: SCSMRI 09:03 | PROVIDERS: ATTEND Surgery | DX: G82.20 Paraplegia, unspecified (principal); M54.50 Low back pain, unspecified; M79.606 Pain in leg, unspecified; M47.816 Spondylosis without myelopathy or radiculopathy, lumbar region; M47.815 Spondylosis without myelopathy or radiculopathy, thoracolumbar region; M47.817 Spondylosis without myelopathy or radiculopathy, lumbosacral region; M47.813 Spondylosis without myelopathy or radiculopathy, cervicothoracic region; M47.814 Spondylosis without myelopathy or radiculopathy, thoracic region; Z98.890 Other specified postprocedural states | CPT/HCPCS: 72141; 72146; 72148 ==

== ENCOUNTER 2022-11-28 13:43 | Outpatient (CLI) | payer MEDICARE | END 2022-11-28 13:44 | disposition home or self-care (01) | LOC: CT 13:43 | PROVIDERS: ATTEND Surgery | DX: I26.99 Other pulmonary embolism without acute cor pulmonale (principal); H50 Other strabismus | CPT/HCPCS: 71275; 82565 ==

== ENCOUNTER 2022-12-18 13:29 | Outpatient (CLI) | payer MEDICARE | END 2022-12-18 13:30 | disposition home or self-care (01) | LOC: ULT 13:29 | PROVIDERS: ATTEND Surgery | DX: I82.403 Acute embolism and thrombosis of unspecified deep veins of lower extremity, bilateral (principal) | CPT/HCPCS: 93970 ==

== ENCOUNTER 2023-01-23 09:33 | Outpatient (CLI) | payer MEDICARE ==
[2023-01-23 12:48] LABS: Hemoglobin 13.8 g/dL (12.0-15.5); Mean Corpuscular HGB CONC 32.4 g/dL (32.0-36.0); Mean Corpuscular Hemoglobin 29.1 pg (27.0-33.0); Mean Corpuscular Volume 89.7 fl (81.6-98.3); Mean Platelet Volume 10.7 fl (7.4-10.4); Platelet Count 357 10x3/uL (150-450); RBC Distribution Width 12.7 % (11.5-14.5); Red Blood Cell (RBC) Count 4.75 10x6/uL (3.90-5.03); White Blood Cell (WBC) Count 7.8 10x3/uL (3.5-10.5)
[2023-01-23 12:58] LABS: PTT 33.9 sec (22.0-33.0); Prothrombin Time 10.3 sec (9.5-12.1)
[2023-01-23 13:14] LABS: Anion Gap 19 mmol/L (10-20); BUN (Urea Nitrogen) 11 mg/dL (9.8-20.1); Calc. Creatinine Clearance 0 mL/min (70-130); Carbon Dioxide 26 mmol/L (23-31); Chloride 101 mmol/L (98-107); Estimated GFR 89; Glucose 114 mg/dL (83-110); Potassium 4.8 mmol/L (3.5-5.1); Sodium 141 mmol/L (136-145)
== END 2023-01-23 09:34 | disposition home or self-care (01) ==
LOC: LABBT 09:33
PROVIDERS: ATTEND Surgery
DX: Z01.818 Encounter for other preprocedural examination (principal); M48.062 Spinal stenosis, lumbar region with neurogenic claudication
CPT/HCPCS: 80048; 85027; 85610; 85730; 93005; 93010

== ENCOUNTER 2023-01-28 10:26 | Inpatient (IN) | payer MEDICARE ==
[2023-01-24 15:54] VITALS: BMI 28.3
[2023-01-28] MEDS ORDERED: CEFAZOLIN 2 GM VIAL ONE (11:28)
[2023-01-28] MEDS ORDERED: Lidocaine 1% MPF 2 ML VIAL ONE (11:28)
[2023-01-28] MEDS ORDERED: Sodium Chloride 0.9% 100 ML ONE (11:28)
[2023-01-28] MEDS ORDERED: Thrombin 5000 UNITS/5 ML VIAL ONE ×2 (13:42→15:08)
[2023-01-28] MEDS ORDERED: Vancomycin 1 GM VIAL ONE ×2 (13:42→16:09)
[2023-01-28] MEDS ORDERED: Esmolol 100 MG/10 ML VIAL ONE (14:12)
[2023-01-28] MEDS ORDERED: Dexamethasone 20 MG/5 ML VIAL ONE (14:12)
[2023-01-28] MEDS ORDERED: Ondansetron PF 4 MG/2 ML Vial ONE (14:12)
[2023-01-28] MEDS ORDERED: GLYCOPYRROLATE/PF 0.2 MG/ML VIAL ONE (14:12)
[2023-01-28] MEDS ORDERED: Rocuronium Bromide 10 MG/ML (10ML VIAL) ONE (14:12)
[2023-01-28] MEDS ORDERED: ePHEDrine Sulfate 50 MG/10 ML VIAL ONE (14:12)
[2023-01-28] MEDS ORDERED: Lidocaine 1% PF 5 ML VIAL ONE (14:12)
[2023-01-28] MEDS ORDERED: PROPOFOL 200 MG/20 ML VIAL ONE (14:12)
[2023-01-28] MEDS ORDERED: Phenylephrine 10 MG/ML VIAL ONE (14:12)
[2023-01-28] MEDS ORDERED: NEOSTIGMINE 3 MG/3 ML SYR 3 MG/3 ML SYRINGE ONE (14:12)
[2023-01-28] MEDS ORDERED: fentaNYL PF 100 MCG/2 ML SYRINGE ONE (14:47)
[2023-01-28] MEDS ORDERED: PACU-Morphine 4MG/ML VIAL SLOW IVP PRN (17:01)
[2023-01-28] MEDS ORDERED: Morphine Sulfate 2 MG/ML SYRINGE SLOW IVP PRN (17:01)
[2023-01-28] MEDS ORDERED: Promethazine HCl 25 MG/ML VIAL IM PRN (17:01)
[2023-01-28] MEDS ORDERED: Ondansetron HCl/PF 4 MG/2 ML Vial IVP PRN (17:01)
[2023-01-28] MEDS ORDERED: HYDROmorphone 2 MG/ML VIAL SLOW IVP PRN (17:01)
[2023-01-28] MEDS ORDERED: Ondansetron PF 4 MG/2 ML Vial IVP PRN (17:17)
[2023-01-28] MEDS ORDERED: Morphine 2 MG/ML VIAL SLOW IVP PRN (17:17)
[2023-01-28] MEDS ORDERED: Acetaminophen 325 MG TAB PO PRN (17:17)
[2023-01-28] MEDS ORDERED: fentaNYL 50 mcg/mL 1 mL Vial ONE (17:34)
[2023-01-28] MEDS: Sodium Chloride 0.9% 1,000 ML IV SCH (19:55)
[2023-01-28] MEDS: CEFAZOLIN 2 GM in Sodium Chloride 0.9% 100 ML IVPB SCH (19:56)
[2023-01-28] MEDS: HYDROcodone/Acetaminophen 7.5/325 mg Tablet PO PRN (20:06)
[2023-01-28] MEDS ORDERED: Albuterol 200 PUFF (6.7GM INHALER) INH PRN (21:20)
[2023-01-28] MEDS ORDERED: Famotidine 20 MG TAB PO PRN (21:25)
[2023-01-28] MEDS: Acetaminophen/Codeine 30-300mg Tablet PO PRN (22:25)
[2023-01-29] MEDS: CEFAZOLIN 2 GM in Sodium Chloride 0.9% 100 ML IVPB SCH (03:00)
[2023-01-29] MEDS: HYDROcodone/Acetaminophen 7.5/325 mg Tablet PO PRN (05:25)
[2023-01-29 06:16] LABS: #Basophils 0.1 thou/uL (0.0-0.2); #Lymphocytes 1.3 thou/uL (1.20-3.40); #Monocytes 0.2 thou/uL (0.11-0.59); #Neutrophils 9.2 thou/uL (1.40-6.50); %Basophils 0.5 % (0.0-1.0); %Eosinophils 0.1 % (0.0-10.0); %Lymphocytes 11.8 % (21.0-51.0); %Monocytes 1.9 % (0.0-10.0); %Neutrophils 85.7 % (42.0-75.0); Hemoglobin 11.5 g/dL (12.0-16.0); Mean Corpuscular HGB CONC 33.1 g/dL (32.0-36.0); Mean Corpuscular Hemoglobin 30.5 pg (27.0-31.0); Mean Corpuscular Volume 92.1 fl (78.0-98.0); Mean Platelet Volume 7.5 fL (7.4-10.4); Platelet Count 277 10x3/uL (130-400); RBC Distribution Width 11.5 % (11.5-14.5); Red Blood Cell (RBC) Count 3.79 mill/uL (4.20-5.40); White Blood Cell (WBC) Count 10.8 10x3/uL (4.8-10.8)
[2023-01-29 06:29] LABS: Anion Gap 13 mmol/L (10-20); BUN (Urea Nitrogen) 15 mg/dL (9.8-20.1); Calc. Creatinine Clearance 73 mL/min (70-130); Calcium 8.5 mg/dL (7.8-10.44); Carbon Dioxide 24 mmol/L (23-31); Chloride 106 mmol/L (98-107); Estimated GFR 81; Glucose 136 mg/dL (83-110); Potassium 4.2 mmol/L (3.5-5.1); Sodium 139 mmol/L (136-145)
[2023-01-29] MEDS: Sodium Chloride 0.9% 1,000 ML IV SCH ×2 (06:49→20:49)
[2023-01-29] MEDS: Mometasone 200 MCG/Formoterol 5 MCG 120 PUFF INHALER INH SCH ×2 (07:01→19:00)
[2023-01-29] MEDS: Baclofen 10 MG TAB PO SCH ×3 (09:50→20:48)
[2023-01-29] MEDS: Gabapentin 300 MG CAP PO SCH ×3 (09:50→20:48)
[2023-01-29] MEDS: Acetaminophen/Codeine 30-300mg Tablet PO PRN ×3 (09:52→20:53)
[2023-01-29] MEDS: Atorvastatin Calcium 20 MG TAB PO SCH (20:48)
[2023-01-29] MEDS: Amitriptyline HCl 100 MG TAB PO SCH (20:48)
[2023-01-30] MEDS: Acetaminophen/Codeine 30-300mg Tablet PO PRN ×3 (04:55→20:25)
[2023-01-30] MEDS: Polyethylene Glycol 3350 17 GM Packet PO PRN (04:55)
[2023-01-30] MEDS ORDERED: Ketorolac Tromethamine 30 MG/ML VIAL ONE (05:40)
[2023-01-30] MEDS: Gabapentin 300 MG CAP PO SCH ×3 (09:11→20:24)
[2023-01-30] MEDS: Baclofen 10 MG TAB PO SCH ×3 (09:11→20:24)
[2023-01-30] MEDS: Sodium Chloride 0.9% 1,000 ML IV SCH ×2 (09:11→20:28)
[2023-01-30] MEDS: Mometasone 200 MCG/Formoterol 5 MCG 120 PUFF INHALER INH SCH ×2 (10:15→18:03)
[2023-01-30] MEDS ORDERED: Ketorolac Tromethamine 30 MG/ML VIAL IVP PRN (14:28)
[2023-01-30] MEDS ORDERED: Diazepam 5 MG TAB PO SCH (14:30)
[2023-01-30] MEDS ORDERED: Ketorolac Tromethamine 30 MG/ML VIAL IVP SCH (14:30)
[2023-01-30] MEDS: Amitriptyline HCl 100 MG TAB PO SCH (20:23)
[2023-01-30] MEDS: Atorvastatin Calcium 20 MG TAB PO SCH (20:25)
[2023-01-31] MEDS: Acetaminophen/Codeine 30-300mg Tablet PO PRN ×3 (04:34→19:48)
[2023-01-31] MEDS: Polyethylene Glycol 3350 17 GM Packet PO PRN (04:34)
[2023-01-31] MEDS: Mometasone 200 MCG/Formoterol 5 MCG 120 PUFF INHALER INH SCH ×2 (07:54→19:25)
[2023-01-31] MEDS: Gabapentin 300 MG CAP PO SCH ×3 (08:27→19:49)
[2023-01-31] MEDS: Baclofen 10 MG TAB PO SCH ×3 (08:28→19:50)
[2023-01-31] MEDS: Sodium Chloride 0.9% 1,000 ML IV SCH (13:17)
[2023-01-31] MEDS: Atorvastatin Calcium 20 MG TAB PO SCH (19:49)
[2023-01-31] MEDS: Amitriptyline HCl 100 MG TAB PO SCH (19:49)
[2023-02-01] MEDS: Sodium Chloride 0.9% 1,000 ML IV SCH (02:59)
[2023-02-01] MEDS: Mometasone 200 MCG/Formoterol 5 MCG 120 PUFF INHALER INH SCH ×2 (07:28→18:59)
[2023-02-01] MEDS: Gabapentin 300 MG CAP PO SCH ×3 (08:04→20:18)
[2023-02-01] MEDS: Baclofen 10 MG TAB PO SCH ×3 (08:05→20:18)
[2023-02-01] MEDS: Acetaminophen/Codeine 30-300mg Tablet PO PRN ×2 (14:16→20:17)
[2023-02-01] MEDS: Amitriptyline HCl 100 MG TAB PO SCH (20:17)
[2023-02-01] MEDS: Atorvastatin Calcium 20 MG TAB PO SCH (20:18)
[2023-02-02] MEDS: Acetaminophen/Codeine 30-300mg Tablet PO PRN ×3 (05:30→21:32)
[2023-02-02] MEDS: Mometasone 200 MCG/Formoterol 5 MCG 120 PUFF INHALER INH SCH ×2 (06:47→18:56)
[2023-02-02] MEDS: Gabapentin 300 MG CAP PO SCH ×3 (08:15→21:32)
[2023-02-02] MEDS: Baclofen 10 MG TAB PO SCH ×3 (08:15→21:32)
[2023-02-02] MEDS: Amitriptyline HCl 100 MG TAB PO SCH (21:31)
[2023-02-02] MEDS: Atorvastatin Calcium 20 MG TAB PO SCH (21:32)
[2023-02-03] MEDS: Acetaminophen/Codeine 30-300mg Tablet PO PRN ×2 (06:51→20:31)
[2023-02-03] MEDS: Mometasone 200 MCG/Formoterol 5 MCG 120 PUFF INHALER INH SCH ×2 (07:00→18:50)
[2023-02-03] MEDS: Gabapentin 300 MG CAP PO SCH ×3 (08:35→20:31)
[2023-02-03] MEDS: Baclofen 10 MG TAB PO SCH ×3 (08:36→20:31)
[2023-02-03] MEDS: Polyethylene Glycol 3350 17 GM Packet PO PRN (10:15)
[2023-02-03] MEDS: Atorvastatin Calcium 20 MG TAB PO SCH (20:31)
[2023-02-03] MEDS: Amitriptyline HCl 100 MG TAB PO SCH (20:31)
[2023-02-04] MEDS: Acetaminophen/Codeine 30-300mg Tablet PO PRN ×2 (05:57→21:28)
[2023-02-04] MEDS: Mometasone 200 MCG/Formoterol 5 MCG 120 PUFF INHALER INH SCH ×2 (06:43→18:51)
[2023-02-04] MEDS: Gabapentin 300 MG CAP PO SCH ×3 (09:09→21:28)
[2023-02-04] MEDS: Polyethylene Glycol 3350 17 GM Packet PO PRN (09:10)
[2023-02-04] MEDS: Baclofen 10 MG TAB PO SCH ×3 (09:10→21:28)
[2023-02-04] MEDS: Atorvastatin Calcium 20 MG TAB PO SCH (21:28)
[2023-02-04] MEDS: Amitriptyline HCl 100 MG TAB PO SCH (21:28)
[2023-02-05] MEDS: Mometasone 200 MCG/Formoterol 5 MCG 120 PUFF INHALER INH SCH (06:56)
[2023-02-05] MEDS: Baclofen 10 MG TAB PO SCH (07:55)
[2023-02-05] MEDS: Gabapentin 300 MG CAP PO SCH (07:55)
[2023-02-05] MEDS: Polyethylene Glycol 3350 17 GM Packet PO PRN (07:55)
[2023-02-05 08:08] VITALS: BP 140/71; TEMP 98.3
== END 2023-02-05 12:50 | disposition home health service (06) | DRG 515 ==
LOC: SDC 10:26 → INTOOBSV 15:42 → T4-A 15:42 → OBSVTOIN 01-30 14:05
PROVIDERS: ADMIT Surgery; ATTEND Surgery
PROC: 01NB0ZZ Release Lumbar Nerve, Open Approach (ICD-10-PCS; principal; 2023-01-28)
PROC: 01NR0ZZ Release Sacral Nerve, Open Approach (ICD-10-PCS; 2023-01-28)
DX: M48.062 Spinal stenosis, lumbar region with neurogenic claudication (principal); L89.154 Pressure ulcer of sacral region, stage 4; Z98.1 Arthrodesis status; Z79.899 Other long term (current) drug therapy
CPT/HCPCS: 36415; 36416; 80048; 85025; 93970; 96374; 96376; 97139; G0378; J1100; J1885; J2370; J2405; J2704; J3010; J3370; J3490; J7050

== ENCOUNTER 2023-09-19 18:25 | Emergency (ER) | payer MEDICARE | END 2023-09-19 19:12 | disposition home or self-care (01) | LOC: ERS 18:25 | DX: I10 Essential (primary) hypertension (principal) | CPT/HCPCS: 99283 ==

== ENCOUNTER 2023-09-26 10:06 | Outpatient (CLI) | payer MEDICARE ==
[2023-09-26 12:24] LABS: #Basophils 0.1 10x3/uL (0.0-0.2); #Eosinphils 0.1 10x3/uL (0.0-0.5); #Monocytes 0.7 10x3/uL (0.0-1.1); #Neutrophils 4.5 10x3/uL (1.5-8.4); %Basophils 0.8 % (0.0-2.0); %Eosinophils 0.8 % (0.0-6.0); %Lymphocytes 36.3 % (18.0-47.0); %Monocytes 8.5 % (0.0-10.0); %Neutrophils 53.1 % (40.0-75.0); Hematocrit 41.7 % (34.9-44.5); Mean Corpuscular HGB CONC 33.6 g/dL (32.0-36.0); Mean Corpuscular Hemoglobin 30.7 pg (27.0-33.0); Mean Corpuscular Volume 91.4 fl (81.6-98.3); Mean Platelet Volume 10.5 fl (7.4-10.4); Platelet Count 377 10x3/uL (150-450); RBC Distribution Width 12.3 % (11.5-14.5); Red Blood Cell (RBC) Count 4.56 10x6/uL (3.90-5.03); White Blood Cell (WBC) Count 8.4 10x3/uL (3.5-10.5)
== END 2023-09-26 10:07 | disposition home or self-care (01) ==
LOC: LABBT 10:06
PROVIDERS: ATTEND Orthopaedic Surgery Hand Surgery
DX: Z01.818 Encounter for other preprocedural examination (principal); G56.03 Carpal tunnel syndrome, bilateral upper limbs
CPT/HCPCS: 85025; 93005; 93010

== ENCOUNTER 2024-02-20 11:10 | Outpatient (CLI) | payer MEDICARE | END 2024-02-20 11:11 | disposition home or self-care (01) | LOC: BICMAMMO 11:10 | PROVIDERS: ATTEND Student in an Organized Health Care Education/Training Program | DX: Z12.31 Encounter for screening mammogram for malignant neoplasm of breast (principal) | CPT/HCPCS: 77063; 77067 ==